=== PATIENT | female | born 2000 | race African-American/Black ===

== ENCOUNTER 2019-06-20 11:38 | Emergency (ER) | payer OTHER ==
[2019-06-20 12:15] VITALS: BP 107/71
--- NOTE | 2019-06-20 12:38 | UC ---
Abdominal Pain Female HPI - HPI Summary HPI Summary: 19-year-old female who was out drinking last evening and drank 5 drinks with tequila. She started having abdominal pain today with vomiting "more times than I can count" and diarrhea approximate 5 times. She states she feels mildly lightheaded. - History of Current Complaint Chief Complaint: UCAbdominalPain Stated Complaint: VOMITING Time Seen by Provider: 06/20/19 12:20 Hx Obtained From: Patient Hx Last Menstrual Period: 06/19/19 ?: No Onset/Duration: Sudden Onset, Lasting Hours Timing: Intermittent Episodes Lasting: Severity Initially: Moderate Severity Currently: Moderate Pain Intensity: 9 Location: Diffuse Radiates: No Character: Cramping Aggravating Factor(s): Nothing Alleviating Factor(s): Nothing Associated Signs and Symptoms: Positive: Nausea, Vomiting, Diarrhea Allergies/Adverse Reactions: Allergies Allergy/AdvReac Type Severity Reaction Status Date / Time No Known Allergies Allergy Verified 06/20/19 12:15 Home Medications: Home Medications NK [No Home Medications Reported] 06/20/19 [History Confirmed 06/20/19] PMH/Surg Hx/FS Hx/Imm Hx Previously Healthy: Yes - Surgical History Surgical History: Yes Surgery Procedure, Year, and Place: bilateral foot surgery - Family History Known Family History: Positive: Unknown - Social History Occupation: Student Alcohol Use: Occasionally Substance Use Type: None Smoking Status (MU): Never Smoked Tobacco Review of Systems All Other Systems Reviewed And Are Negative: Yes Gastrointestinal: Positive: Vomiting, Diarrhea, Nausea Neurological/Mental Status: Positive: Weakness Is Patient Immunocompromised?: No Physical Exam Triage Information Reviewed: Yes Appearance: Well-Appearing, Well-Nourished, Pain Distress Vital Signs: Initial Vital Signs Temp 98.2 F 06/20/19 12:07 Pulse 77 06/20/19 12:07 Resp 16 06/20/19 12:07 BP 107/71 06/20/19 12:07 Pulse Ox 99 06/20/19 12:07 Vital Signs Reviewed: Yes Eyes: Positive: Conjunctiva Clear ENT: Positive: Pharynx normal, TMs normal, Uvula midline Neck: Positive: Supple, Nontender, No Lymphadenopathy Respiratory: Positive: Lungs clear, Normal breath sounds, No respiratory distress, No accessory muscle use Cardiovascular: Positive: RRR, No Murmur, Pulses Normal, Brisk Capillary Refill Abdomen Description: Positive: No Organomegaly, Soft, Guarding, Other: - Generalized abdominal tenderness on palpation.. Negative: CVA Tenderness (R), CVA Tenderness (L), Distended, Hepatomegaly, Splenomegaly Bowel Sounds: Positive: Hypoactive Musculoskeletal Exam: Normal Neurological Exam: Normal Psychological Exam: Normal Skin Exam: Normal Abd Pain Female Course/Dx - Course Course Of Treatment: The patient is fairly uncomfortable here. I feel she needs evaluation in the emergency room. She refused ambulance transport. She has a friend with her who will transport her to the emergency room. I called the emergency room and spoke with Debby HUANG to give report. - Differential Dx/Diagnosis Provider Diagnosis: Abdominal pain, Vomiting, Diarrhea Discharge ED - Sign-Out/Discharge Documenting (check all that apply): Patient Departure All imaging exams completed and their final reports reviewed: No Studies - Discharge Plan Condition: Fair Disposition: HOME-RECOMMEND TO ED Referrals: No Primary Care Phys,NOPCP [Primary Care Provider] - Additional Instructions: After the evaluation by the nurse practitioner, it is recommended that you go to the emergency room for further evaluation of the abdominal pain where you should receive additional testing that can be completed in the emergency department. It is recommended that you go directly to the emergency department. This evaluation may include blood work or imaging. This testing will be directed and decided by the provider that evaluates you within the emergency department. If pain becomes worse, you feel lightheaded or you develop uncontrolled vomiting, or have any other concerns while you are driving to the emergency room, please bleach boiler puller and call 911. - Billing Disposition and Condition Condition: FAIR Disposition: Home-Recommend to ED
== END 2019-06-20 12:41 | disposition home health service (06) ==
LOC: UCCORT 11:38
DX: R11.2 Nausea with vomiting, unspecified (principal); R10.9 Unspecified abdominal pain; R19.7 Diarrhea, unspecified; R53.83 Other fatigue
CPT/HCPCS: 99202; G0463